=== PATIENT | female | born 1985 | race Caucasian/White ===

== ENCOUNTER 2017-12-31 22:00 | Inpatient (IN) | payer MEDICAID ==
[2017-12-31] MEDS ORDERED: LIDOCAINE 0.5% (PF) 5 MG/ML (50 ML SDV) SQ PRN (22:29)
[2017-12-31] MEDS ORDERED: CARBOPROST TROMETHAMINE 250 MCG/ML 1 ML AMP IM PRN (22:29)
[2017-12-31] MEDS ORDERED: OXYTOCIN 10 UNIT/ML 1 ML VIAL IM PRN (22:29)
[2017-12-31] MEDS ORDERED: AMPICILLIN 2,000 MG in SODIUM CHLORIDE 0.9% 100 ML IVPB STA (22:29)
[2017-12-31] MEDS ORDERED: TERBUTALINE 1 MG/ML VIAL SQ PRN (22:29)
[2017-12-31] MEDS ORDERED: METHYLERGONOVINE 0.2 MG/ML 1 ML AMP IM PRN (22:29)
[2017-12-31] MEDS ORDERED: LACTATED RINGERS 1,000 ML IV SCH (22:30)
[2017-12-31 22:44] LABS: Basophils % (A) 0 %; Eosinophils # (A) 0.1 k/uL (0-0.7); Eosinophils % (A) 2 %; HCT 40.6 % (34.0-46.0); HGB 13.1 gm/dL (11.4-16.0); Lymphocytes # (A) 1.3 k/uL (1.0-4.8); Lymphocytes % (A) 19 %; MCH 27.2 pg (25.0-35.0); MCHC 32.2 g/dL (31.0-37.0); MCV 84.4 fL (80.0-100.0); Mean Platelet Volume 9.9; Monocytes # (A) 0.4 k/uL (0-1.0); Monocytes % (A) 6 %; Neutrophils # (A) 5.1 k/uL (1.3-7.7); Neutrophils % (A) 71 %; Platelet Count 139 k/uL (150-450); RBC 4.81 m/uL (3.80-5.40); RDW 13.5 % (11.5-15.5); WBC 7.1 k/uL (3.8-10.6)
[2018-01-01] MEDS ORDERED: OXYTOCIN 20 UNITS/1000 ML NS 1,000 ML IV SCH (00:25)
[2018-01-01] MEDS ORDERED: HYDROcodone/APAP 5-325MG 1 EACH TAB PO PRN (00:39)
[2018-01-01] MEDS ORDERED: IBUPROFEN 600 MG TAB PO PRN (00:39)
[2018-01-01] MEDS ORDERED: ZOLPIDEM 5 MG TAB PO PRN (00:39)
[2018-01-01] MEDS ORDERED: diphenhydrAMINE 50 MG CAP PO PRN (00:39)
[2018-01-01] MEDS ORDERED: ACETAMINOPHEN TAB 325 MG TAB PO PRN (00:39)
[2018-01-01] MEDS ORDERED: LANOLIN CREAM 5 GM TUBE TOPICAL PRN (00:39)
[2018-01-01] MEDS ORDERED: diphenhydrAMINE 25 MG CAP PO PRN (00:39)
[2018-01-01] MEDS ORDERED: SIMETHICONE 80 MG CHEWABLE PO PRN (00:39)
[2018-01-01] MEDS ORDERED: diphenhydrAMINE 50 MG/ML 1 ML VIAL IVP PRN ×2 (00:39)
[2018-01-01] MEDS ORDERED: WITCH HAZEL 1 EACH MED..PAD TOPICAL PRN (00:39)
[2018-01-01] MEDS ORDERED: HYDROCORTISONE 2.5% RECTAL CREAM 30 GM TUBE RECTAL PRN (00:39)
[2018-01-01] MEDS ORDERED: BENZOCAINE/MENTHOL SPRAY 1 GM/SPRAY AEROSOL TOPICAL PRN (00:39)
--- NOTE | 2018-01-01 00:41 | P.HPOB ---
History of Present Illness H&P Date: 01/01/18 Chief Complaint: Intrauterine at term: Active labor Janice is a 32-year-old at 39 weeks gestation arrives in active labor dilated to 7 cm. She relates that her contractions began approximately 1/2-2 hours prior to her arrival and that they were every 2-4 minutes. At arrival she was dilated to 7 cm and it appears she has spontaneous rupture membranes in the triage area. Her course has been unremarkable other than GBS positive status. Pertinent labs include B+ blood type, Rh antibody was negative , rubella was immune, hepatitis B surface antigen and RPR were negative. heart tones are in the 130s and a category 1 tracing is noted. Medications and Allergies Home Medications Medication Instructions Recorded Confirmed Type No Known Home Medications 12/31/17 12/31/17 History Allergies Allergy/AdvReac Type Severity Reaction Status Date / Time No Known Allergies Allergy Verified 12/31/17 22:28 Exam Osteopathic Statement: *. No significant issues noted on an osteopathic structural exam other than those noted in the History and Physical/Consult. Intake and Output 12/31/17 12/31/17 01/01/18 14:59 22:59 06:59 Other: Weight 78.925 kg - OBG Physical Exam Breast: both: normal (no masses) Abdomen: bowel sounds normal, no diffuse tenderness, no bruit present, no guarding noted, no hepatomegaly, no splenomegaly, no mass Vulva: both: normal Vagina: normal moisture, no discharge Cervix: no lesion, no discharge Uterus: normal size, normal contour Adnexa: both: normal Anus/Rectum: normal perianal skin, no rectal mass, no hemorrhoids, heme negative Results Result Diagrams: 12/31/17 22:30 Abnormal Lab Results - Last 24 Hours (Table) 12/31/17 Range/Units 22:30 Plt Count 139 L (150-450) k/uL
--- NOTE | 2018-01-01 00:42 | P.PROBDLV ---
Vaginal Delivery Note - . Vaginal Delivery Note: Patient progressed complete and pushing with spontaneous vaginal delivery of a viable female over a second-degree perineal laceration. On delivery of the head from right occiput anterior position a nuchal cord 1 was noted and easily reduced. Anterior shoulder was then delivered gentle downward traction followed by the remainder the baby. Mouth and nares were then bulb suctioned and baby was placed on mother's abdomen where the umbilical cord was allowed to pulsate for 30 seconds prior to clamping and cutting. Nursery personnel was then present to assume care. Placenta was then delivered intact Pitocin was added to the IV. Laceration was repaired with 3-0 Vicryl following 1% Xylocaine for analgesia. scores were 9 and 10 at one and 5 minutes respectively and a weight of 7 lbs. 11 oz. Both mother and baby are stable following delivery.
[2018-01-01 02:47] VITALS: BMI 27.2
[2018-01-01] MEDS ORDERED: AMPICILLIN 1,000 MG in SODIUM CHLORIDE 0.9% 50 ML IVPB SCH (03:00)
[2018-01-01] MEDS ORDERED: INFLUENZA VACCINE (6 MOS+) 60 MCG/0.5 ML SYRINGE IM ONE (04:58)
[2018-01-01] MEDS: SENNOSIDES-DOCUSATE SODIUM 1 EACH TAB PO SCH ×2 (18:48→20:53)
--- NOTE | 2018-01-02 07:32 | P.DS ---
Providers Date of admission: 12/31/17 22:20 Expected date of discharge: 01/02/18 Attending physician: Shiloh Avila Primary care physician: Stated None - Discharge Diagnosis(es) (1) Normal vaginal delivery Current Visit: Yes Status: Acute Hospital Course: Patient presented in active labor. She underwent a normal vaginal delivery. Her course was uncomplicated. She'll be discharged home day #1 in stable condition to follow-up with me in 6 weeks. Plan - Discharge Summary New Discharge Prescriptions: New Ibuprofen [Motrin] 600 mg PO Q6HR PRN #30 tab PRN Reason: Mild Pain Or Fever >= 100.5 Discharge Medication List Ibuprofen [Motrin] 600 mg PO Q6HR PRN #30 tab 01/02/18 [Rx] Follow up Appointment(s)/Referral(s): Shiloh Avila DO [Doctor of Osteopathic Medicine] - 6 Weeks Discharge Disposition: HOME SELF-CARE
[2018-01-02] MEDS: SENNOSIDES-DOCUSATE SODIUM 1 EACH TAB PO SCH (08:00)
[2018-01-02 10:15] VITALS: BP 123/67; PULSE 90; RESP 18; TEMP 98
--- NOTE | 2018-01-04 07:52 | P.MSEPDOC ---
Presenting Problems - Arrival Data Date of Arrival on Unit: 12/31/17 Time of Arrival on Unit: 22:27 Mode of Transport: Ambulatory - Complaint OB-Reason for Admission/Chief Complaint: Possible Onset of Labor, Observation/ Evaluation Comment: contractions since 2099 Medical History - Information : 1 Para: 0 Term: 0 : 0 Abortions: Spontaneous or Elective: 0 Number of Living Children: 0 - Gestational Age Gestational Age by NAHEED (wks/days): 39 Weeks and 2 Days Review of Systems - Review of Systems Constitutional: No problems Breast: No problems ENT: No problems Cardiovascular: No problems Respiratory: No problems Gastrointestinal: No problems Genitourinary: No problems Musculoskeletal: No problems Neurological: No problems Skin: No problems Vital Signs - Temperature Temperature: 98.0 F Temperature Source: Oral - Pulse Right Brachial Pulse Rate: 90 Pulse Assessment Method: Automatic Cuff - Respirations Respiratory Rate: 18 Oxygen Delivery Method: Room Air - Blood Pressure Right Arm Blood Pressure: 123/67 Blood Pressure Mean: 85 Blood Pressure Source: Automatic Cuff Medical Screen Scoring (Pre) - Cervical Exam Dilation: 4-7 cm = 2 Effacement: More than 50% = 2 Membranes: Ruptured = 3 - Uterine Contractions Frequency: > or = 36 weeks =2 Duration: > 40 seconds = 2 Intensity: Contraction palpated strong = 1 - Maternal Vital Signs Maternal Blood Pressure: N/A Signs of Preeclampsia: N/A Maternal Respirations: N/A - Pain Assessment Pain Location and Character: Abdomen Pain Scale Used: Numeric (1 - 10) Pain Intensity: 6 Pain Description: *Acute, Tightness Pain Frequency: Intermittent Pain Duration: 1 Pain Duration Units: Hours Pain Behavior: Facial Grimacing Pain Aggravating Factors: Contractions Pharmacological Interventions: Discuss Pain Med Options Non-Pharmacological Interventions: Emotional/Spiritual Support, Environmental Control, Position/Reposition, Reduce Environmental Stimuli, Relaxation Technique - Maternal Trauma Maternal Trauma: N/A - Assessment Baseline FHR: 140 Heart Rate - NICHD Category: Category I (Normal) = 0 NST: Reactive Position: N/A Station: N/A - Total Score Total Score (Pre): 12 - Level of Risk Level of Risk: High (10+) Physician Notification (Pre) - Physician Notified Physician Notified Date: 01/01/18 Physician Notified Time: 22:19 Spoke With: Yared Perrin Order Received: Yes (admit for labor, abx, coming in) - Notification Comment Comment: Suite 7 Physician Notification (Post) - Notification Comment Comment: Admit for labor Suite 7, Yared coming in Disposition - Disposition OB Disposition: Admit, LDRP Suite Discharge Date: 01/02/18 Discharge Time: 16:33 I agree with the RN Medical Screening Exam: Yes Risk & Benefit of care provided described in d/c instruction: Yes Diagnosis: ENCOUNTER FOR FULL-TERM UNCOMPLICATED DELIVERY
== END 2018-01-02 16:36 | disposition home or self-care (01) | DRG 807 ==
LOC: FBPOP 22:00 → 4FBP 22:20
PROVIDERS: ADMIT Obstetrics & Gynecology; ATTEND Obstetrics & Gynecology
PROC: 10E0XZZ Delivery of Products of Conception, External Approach (ICD-10-PCS; principal; 2018-01-01)
PROC: 0KQM0ZZ Repair Perineum Muscle, Open Approach (ICD-10-PCS; 2018-01-01)
DX: O69.81X0 Labor and delivery complicated by cord around neck, without compression, not applicable or unspecified (principal); Z37.0 Single live birth; O99.824 Streptococcus B carrier state complicating childbirth; O70.1 Second degree perineal laceration during delivery; Z3A.39 39 weeks gestation of pregnancy
CPT/HCPCS: 85025; 86850; 86900; 86901; 90686

== ENCOUNTER → 2020-06-18 | Outpatient (CLI) | payer MEDICAID ==
[2020-06-18 13:52] LABS: Glucose 3 Hour, Gest 44 mg/dL
== END | disposition home or self-care (01) ==
LOC: LABWHC1 08:30
PROVIDERS: ATTEND Obstetrics & Gynecology
DX: O99.810 Abnormal glucose complicating pregnancy (principal); Z3A.00 Weeks of gestation of pregnancy not specified
CPT/HCPCS: 36415; 82951; 82952

== ENCOUNTER 2020-08-22 09:19 | Inpatient (IN) | payer MEDICAID ==
[2020-08-22] MEDS ORDERED: TERBUTALINE 1 MG/ML VIAL SQ PRN (09:39)
[2020-08-22] MEDS ORDERED: METHYLERGONOVINE 0.2 MG/ML 1 ML AMP IM PRN (09:39)
[2020-08-22] MEDS ORDERED: CARBOPROST TROMETHAMINE 250 MCG/ML 1 ML AMP IM PRN (09:39)
[2020-08-22] MEDS ORDERED: OXYTOCIN 10 UNIT/ML 1 ML VIAL IM PRN (09:39)
[2020-08-22] MEDS ORDERED: AMPICILLIN 2,000 MG in SODIUM CHLORIDE 0.9% 100 ML IVPB STA (09:39)
[2020-08-22] MEDS ORDERED: LIDOCAINE 0.5% (PF) 5 MG/ML (50 ML SDV) SQ PRN (09:39)
[2020-08-22] MEDS ORDERED: LACTATED RINGERS 1,000 ML IV SCH (09:45)
[2020-08-22] MEDS ORDERED: OXYTOCIN 30 UNITS/500 ML NS 30 UNIT in SALINE 1 500ML.BAG IV SCH (09:45)
[2020-08-22 10:48] LABS: Basophils % (A) 1 %; Eosinophils % (A) 0 %; HCT 36.4 % (34.0-46.0); HGB 11.5 gm/dL (11.4-16.0); Hypochromasia Slight; Lymphocytes % (A) 14 %; MCH 24.2 pg (25.0-35.0); MCHC 31.6 g/dL (31.0-37.0); MCV 76.4 fL (80.0-100.0); Mean Platelet Volume 11.6; Monocytes # (A) 0.4 k/uL (0-1.0); Monocytes % (A) 5 %; Neutrophils # (A) 5.2 k/uL (1.3-7.7); Neutrophils % (A) 78 %; RBC 4.77 m/uL (3.80-5.40); RDW 14.4 % (11.5-15.5); WBC 6.7 k/uL (3.8-10.6)
[2020-08-22 11:09] LABS: Large Platelets Present; Platelet Count 126 k/uL (150-450)
[2020-08-22 11:10] LABS: Anisocytosis (M) Present
[2020-08-22] MEDS: OXYTOCIN 30 UNITS/500 ML NS 30 UNIT in SALINE 1 500ML.BAG IV SCH ×2 (12:51→13:21)
[2020-08-22] MEDS ORDERED: diphenhydrAMINE 50 MG/ML 1 ML VIAL IVP PRN ×2 (12:57)
[2020-08-22] MEDS ORDERED: HYDROCORTISONE 2.5% RECTAL CREAM 30 GM TUBE RECTAL PRN (12:57)
[2020-08-22] MEDS ORDERED: ACETAMINOPHEN TAB 325 MG TAB PO PRN (12:57)
[2020-08-22] MEDS ORDERED: BENZOCAINE/MENTHOL SPRAY 1 GM/SPRAY AEROSOL TOPICAL PRN (12:57)
[2020-08-22] MEDS ORDERED: LANOLIN CREAM 5 GM TUBE TOPICAL PRN (12:57)
[2020-08-22] MEDS ORDERED: diphenhydrAMINE 25 MG CAP PO PRN (12:57)
[2020-08-22] MEDS ORDERED: diphenhydrAMINE 50 MG CAP PO PRN (12:57)
[2020-08-22] MEDS ORDERED: IBUPROFEN 600 MG TAB PO PRN (12:57)
[2020-08-22] MEDS ORDERED: ZOLPIDEM 5 MG TAB PO PRN (12:57)
[2020-08-22] MEDS ORDERED: SIMETHICONE 80 MG CHEWABLE PO PRN (12:57)
[2020-08-22] MEDS ORDERED: AMPICILLIN 1,000 MG in SODIUM CHLORIDE 0.9% 50 ML IVPB SCH (14:00)
[2020-08-23] MEDS: SENNOSIDES-DOCUSATE SODIUM 1 EACH TAB PO SCH ×2 (00:53→08:20)
[2020-08-23 06:02] LABS: Basophils % (A) 0 %; Eosinophils # (A) 0.1 k/uL (0-0.7); Eosinophils % (A) 1 %; HGB 10.5 gm/dL (11.4-16.0); Hypochromasia Slight; Lymphocytes # (A) 1.3 k/uL (1.0-4.8); Lymphocytes % (A) 16 %; MCH 26.1 pg (25.0-35.0); MCHC 33.9 g/dL (31.0-37.0); MCV 76.9 fL (80.0-100.0); Mean Platelet Volume 10.9; Monocytes # (A) 0.4 k/uL (0-1.0); Monocytes % (A) 5 %; Neutrophils % (A) 76 %; Platelet Count 116 k/uL (150-450); RBC 4.03 m/uL (3.80-5.40); RDW 14.5 % (11.5-15.5); WBC 7.8 k/uL (3.8-10.6)
[2020-08-23 08:04] VITALS: RESP 17
--- NOTE | 2020-08-23 08:07 | P.HPOB ---
History of Present Illness H&P Date: 08/22/20 Chief Complaint: Labor 34-year-old presents at 39 weeks and 5 days and labor. Her cervix is 7-8 cm dilated, 80% effaced, and -1 station. She is roger every 2-3 minutes. heart tones 135 with moderate variability and reactive. Review of Systems All systems: negative Constitutional: Denies chills, Denies fever Eyes: denies blurred vision, denies pain Ears, nose, mouth and throat: Denies headache, Denies sore throat Cardiovascular: Denies chest pain, Denies shortness of breath Respiratory: Denies cough Gastrointestinal: Denies abdominal pain, Denies diarrhea, Denies nausea, Denies vomiting Genitourinary: Denies dysuria, Denies hematuria Musculoskeletal: Denies myalgias Integumentary: Denies pruritus, Denies rash Neurological: Denies numbness, Denies weakness Psychiatric: Denies anxiety, Denies depression Endocrine: Denies fatigue, Denies weight change Past Medical History Past Medical History: No Reported History Additional Past Medical History / Comment(s): Obstetric history: First was a vaginal delivery. This is her second and she's had care with me since the first trimester. Blood type is B+, antibodies negative, rubella immune, RPR nonreactive, hepatitis B negative, GBS positive. History of Any Multi-Drug Resistant Organisms: None Reported Past Surgical History: No Surgical Hx Reported Additional Past Surgical History / Comment(s): wisdom teeth Past Anesthesia/Blood Transfusion Reactions: No Reported Reaction Past Psychological History: No Psychological Hx Reported Smoking Status: Never smoker Past Alcohol Use History: None Reported Past Drug Use History: None Reported - Past Family History Mother History Unknown: Yes Family Medical History: CVA/TIA, Hypertension, Thyroid Disorder Additional Family Medical History / Comment(s): depression, anxiety Medications and Allergies Home Medications Medication Instructions Recorded Confirmed Type Pnv No.95/Ferrous Fum/Folic AC 1 each PO DAILY 08/22/20 08/22/20 History [ Multivitamin Tablet] Allergies Allergy/AdvReac Type Severity Reaction Status Date / Time No Known Allergies Allergy Verified 12/31/17 22:28 Exam Osteopathic Statement: *. No significant issues noted on an osteopathic structural exam other than those noted in the History and Physical/Consult. Vital Signs Temp Pulse Pulse Resp BP Pulse Ox 08/23/20 08:00 97.9 F 78 17 104/57 98 08/23/20 00:00 98.0 F 78 18 103/70 97 08/22/20 16:00 98.2 F 82 16 136/71 08/22/20 15:03 80 16 122/75 08/22/20 14:20 85 16 121/71 08/22/20 13:50 98.2 F 82 16 119/74 08/22/20 13:35 94 16 124/67 08/22/20 13:20 84 16 134/80 08/22/20 13:05 90 16 126/78 08/22/20 12:50 98.1 F 99 18 143/68 08/22/20 10:07 97.9 F 82 17 127/88 100 Intake and Output 08/22/20 08/23/20 08/23/20 22:59 06:59 14:59 Intake Total 600 Balance 600 Intake: IV 600 Other: # Voids 2 1 Heart: Regular rate and rhythm Lungs: Clear to auscultation bilaterally Abdomen: Soft, nontender Extremities: Negative Homans sign Results Result Diagrams: 08/23/20 05:36 Abnormal Lab Results - Last 24 Hours (Table) 08/22/20 08/23/20 Range/Units 09:50 05:36 Hgb 10.5 L (11.4-16.0) gm/dL Hct 31.0 L (34.0-46.0) % MCV 76.4 L 76.9 L (80.0-100.0) fL MCH 24.2 L (25.0-35.0) pg Plt Count 126 L 116 L (150-450) k/uL Assessment and Plan (1) Normal labor Current Visit: Yes Status: Acute Code(s): O80 - ENCOUNTER FOR FULL-TERM UNCOMPLICATED DELIVERY; Z37.9 - OUTCOME OF DELIVERY, UNSPECIFIED SNOMED Code(s): 96440960 Plan: 1. Antibiotics for GBS prophylaxis 2. Expectant management 3. Anticipate normal vaginal delivery
--- NOTE | 2020-08-23 08:08 | P.PROBDLV ---
Vaginal Delivery Note - . Vaginal Delivery Note: 34-year-old presents at 39 weeks and 5 days and labor. Her cervix is 7-8 cm dilated, 80% effaced, and -1 station. She is roger every 2-3 minutes. heart tones 135 with moderate variability and reactive. Antibiotics were started. Amniotomy performed at 12:02 PM. Clear fluid noted. Her cervix was completely dilated at 12:30 PM. She pushed, and delivered a viable female over intact perineum at 12:46 PM. Head delivered OA, anterior shoulder delivered gentle downward guidance for by posterior shoulder and rest of body. Nose and mouth bulb suctioned, cord clamped and cut, infant placed mother's abdomen. Apgars 9, 9, weight 8 lbs. 8 oz. Placenta delivered spontaneously, intact with three-vessel cord at 12:49 PM. Vagina, cervix, perineum inspected. First-degree midline laceration was repaired with 3-0 Vicryl. Estimated blood loss 500 mL. Mother and baby in stable condition.
--- NOTE | 2020-08-23 08:10 | P.DS ---
Providers Date of admission: 08/22/20 09:38 Expected date of discharge: 08/23/20 Attending physician: Shiloh Avila Primary care physician: Stated None - Discharge Diagnosis(es) (1) Normal labor Current Visit: Yes Status: Resolved (2) Normal vaginal delivery Current Visit: No Status: Acute Hospital Course: Patient presented in active labor. She underwent a normal vaginal delivery. course was uncomplicated. She denies nausea, vomiting, chest pain, shortness of breath or any calf pain. Her lochia is decreasing. She'll be discharged home day #1 in stable condition to follow-up with me in 6 weeks. Plan - Discharge Summary New Discharge Prescriptions: New Ibuprofen [Motrin] 600 mg PO Q6H PRN #30 tab PRN Reason: Pain No Action Pnv No.95/Ferrous Fum/Folic AC [ Multivitamin Tablet] 1 each PO DAILY Discharge Medication List Pnv No.95/Ferrous Fum/Folic AC [ Multivitamin Tablet] 1 each PO DAILY 08/22/20 [History] Ibuprofen [Motrin] 600 mg PO Q6H PRN #30 tab 08/23/20 [Rx] Follow up Appointment(s)/Referral(s): Shiloh Avila DO [Doctor of Osteopathic Medicine] - 6 Weeks Discharge Disposition: HOME SELF-CARE
[2020-08-23 16:17] VITALS: BP 108/69; PULSE 89; TEMP 98.5
== END 2020-08-23 18:15 | disposition home or self-care (01) | DRG 807 ==
LOC: FBPOP 09:19 → 4FBP 09:38
PROVIDERS: ADMIT Obstetrics & Gynecology; ATTEND Obstetrics & Gynecology
PROC: 10E0XZZ Delivery of Products of Conception, External Approach (ICD-10-PCS; principal; 2020-08-22)
PROC: 0HQ9XZZ Repair Perineum Skin, External Approach (ICD-10-PCS; 2020-08-22)
DX: O70.0 First degree perineal laceration during delivery (principal); Z37.0 Single live birth; O99.824 Streptococcus B carrier state complicating childbirth; Z3A.39 39 weeks gestation of pregnancy
CPT/HCPCS: 85025; 86850; 86900; 86901

== ENCOUNTER 2024-04-09 08:20 | Emergency (ER) | payer MEDICAID ==
--- NOTE | 2024-04-09 09:16 | ED ---
General Adult HPI - General Chief complaint: Skin/Abscess/Foreign Body Stated complaint: allergic reaction Time Seen by Provider: 04/09/24 08:34 Source: patient, RN notes reviewed Mode of arrival: ambulatory Limitations: no limitations - History of Present Illness Initial comments: 38-year-old female presents to the emergency department for evaluation of pain and swelling. Patient notes she had some swelling to her upper lip yesterday. She notes that it seemed to improve but then came back again this morning. She took Benadryl and had some improvement in the swelling. Patient also reports that she had hives and itching to the lower extremities. She states that she typically takes Zyrtec daily for seasonal allergies but states that she has been out of this for the past 3 days. She denies any new medications. She does report using a new laundry detergent. She denies recent fever, chills. Denies any difficulty breathing. - Related Data Home Medications Medication Instructions Recorded Confirmed Pnv No.95/Ferrous Fum/Folic AC 1 each PO DAILY 08/22/20 08/22/20 [ Multivitamin Tablet] Previous Rx's Medication Instructions Recorded Ibuprofen [Motrin] 600 mg PO Q6H PRN #30 tab 08/23/20 predniSONE 50 mg PO DAILY #5 tab 04/09/24 Allergies Allergy/AdvReac Type Severity Reaction Status Date / Time amoxicillin [From Augmentin] AdvReac Nausea & Verified 04/09/24 08:29 Vomiting & Diarrhea clavulanic acid AdvReac Nausea & Verified 04/09/24 08:29 [From Augmentin] Vomiting & Diarrhea Review of Systems ROS Statement: Those systems with pertinent positive or pertinent negative responses have been documented in the HPI. ROS Other: All systems not noted in ROS Statement are negative. Past Medical History Past Medical History: No Reported History Additional Past Medical History / Comment(s): Obstetric history: First was a vaginal delivery. This is her second and she's had care with me since the first trimester. Blood type is B+, antibodies negative, rubella immune, RPR nonreactive, hepatitis B negative, GBS positive. History of Any Multi-Drug Resistant Organisms: None Reported Past Surgical History: No Surgical Hx Reported Additional Past Surgical History / Comment(s): wisdom teeth Past Anesthesia/Blood Transfusion Reactions: No Reported Reaction Past Psychological History: No Psychological Hx Reported Smoking Status: Never smoker Past Alcohol Use History: None Reported Past Drug Use History: None Reported - Past Family History Mother History Unknown: Yes Family Medical History: CVA/TIA, Hypertension, Thyroid Disorder Additional Family Medical History / Comment(s): depression, anxiety General Exam Limitations: no limitations General appearance: alert, in no apparent distress Head exam: Present: atraumatic, normocephalic, normal inspection Eye exam: Present: normal appearance, PERRL, EOMI. Absent: scleral icterus, conjunctival injection, periorbital swelling ENT exam: Present: normal exam, normal oropharynx, mucous membranes moist Neck exam: Present: normal inspection. Absent: tenderness, meningismus, lymphadenopathy Respiratory exam: Present: normal lung sounds bilaterally. Absent: respiratory distress, wheezes, rales, rhonchi, stridor Cardiovascular Exam: Present: regular rate, normal rhythm, normal heart sounds. Absent: systolic murmur, diastolic murmur, rubs, gallop, clicks GI/Abdominal exam: Present: soft, normal bowel sounds. Absent: distended, tenderness, guarding, rebound, rigid Extremities exam: Present: normal inspection, full ROM, normal capillary refill. Absent: tenderness, pedal edema, joint swelling, calf tenderness Neurological exam: Present: alert, oriented X3 Psychiatric exam: Present: normal affect, normal mood Skin exam: Present: warm, dry, intact, normal color. Absent: rash Course Vital Signs 04/09/24 04/09/24 04/09/24 08:31 10:00 11:01 Temperature 98.4 F 98.3 F 98 F Pulse Rate 95 89 80 Respiratory 18 18 16 Rate Blood Pressure 112/74 115/76 109/74 O2 Sat by Pulse 100 100 100 Oximetry Medical Decision Making - Medical Decision Making Was pt. sent in by a medical professional or institution (, PA, ANALYTICS CONSULTANT, urgent care, hospital, or long term...) When possible be specific @ -No Did you speak to anyone other than the patient for history (EMS, parent, family, police, friend...)? What history was obtained from this source @ -No Did you review nursing and triage notes (agree or disagree)? Why? @ -I reviewed and agree with nursing and triage notes Were old charts reviewed (outside hosp., previous admission, EMS record, old EKG, old radiological studies, urgent care reports/EKG's, long term records)? Report findings @ -No old charts were reviewed Differential Diagnosis (chest pain, altered mental status, abdominal pain women, abdominal pain men, vaginal bleeding, weakness, fever, dyspnea, syncope, headache, dizziness, GI bleed, back pain, seizure, CVA, palpatations, mental health, musculoskeletal)? @ -Angioedema, allergic reaction, viral syndrome, this list is not all inclusive EKG interpreted by me (3pts min.). @ -None X-rays interpreted by me (1pt min.). @ -None done CT interpreted by me (1pt min.). @ -None done U/S interpreted by me (1pt. min.). @ -None done What testing was considered but not performed or refused? (CT, X-rays, U/S, labs)? Why? @ -None What meds were considered but not given or refused? Why? @ -None Did you discuss the management of the patient with other professionals (professionals i.e. , PA, ANALYTICS CONSULTANT, lab, RT, psych nurse, social work administrator, leisure studies professor, teacher, fire control officer, watch case polisher)? Give summary @ -No Was smoking cessation discussed for >3mins.? @ -No Was critical care preformed (if so, how long)? @ -No Were there social determinants of health that impacted care today? How? (Homelessness, low income, unemployed, alcoholism, drug addiction, transportation, low edu. Level, literacy, decrease access to med. care, correction, rehab)? @ -No Was there de-escalation of care discussed even if they declined (Discuss DNR or withdrawal of care, Hospice)? DNR status @ -No What co-morbidities impacted this encounter? (DM, HTN, Smoking, COPD, CAD, Cancer, CVA, ARF, Chemo, Hep., AIDS, mental health diagnosis, sleep apnea, morbid obesity)? @ -None Was patient admitted / discharged? Hospital course, mention meds given and route , prescriptions, significant lab abnormalities, going to OR and other pertinent info. @ -Discharge. Patient presented emergency department for evaluation of hives. Laboratory studies obtained. There is no significant leukocytosis, hemoglobin stable; CMP nonactionable at this time, negative heterophile. Chest x-ray shows no evidence of acute process. Patient was provided with allergy cocktail i ncluding Solu-Medrol, Benadryl, Pepcid. She reports improvement in her symptoms following this. Patient is not having any difficulty breathing or wheezing. Prescription was sent to the patients pharmacy for short course of steroids, advised her to continue Benadryl and Pepcid as well. She is understanding agreeable this plan. Patient stable at time of discharge. Case discussed with Dr. Michaels Undiagnosed new problem with uncertain prognosis? @ -No Drug Therapy requiring intensive monitoring for toxicity (Heparin, Nitro, Insulin, Cardizem)? @ -No Were any procedures done? @ -No Diagnosis/symptom? @ -Urticaria Acute, or Chronic, or Acute on Chronic? @ -Acute Uncomplicated (without systemic symptoms) or Complicated (systemic symptoms)? @ -Uncomplicated Side effects of treatment? @ -No Exacerbation, Progression, or Severe Exacerbation? @ -No Poses a threat to life or bodily function? How? (Chest pain, [place], MT, pneumonia, PE, COPD, DKA, ARF, appy, cholecystitis, CVA, Diverticulitis, Homicidal, Suicidal, threat to staff... and all critical care pts) @ -No - Lab Data Result diagrams: 04/09/24 09:22 04/09/24 09:22 Lab Results 04/09/24 04/09/24 04/09/24 Range/Units 09:22 09:22 09:22 WBC 7.2 (3.8-10.6) k/uL RBC 5.11 (3.80-5.40) m/uL Hgb 14.7 (11.4-16.0) gm/dL Hct 43.3 (34.0-46.0) % MCV 84.7 (80.0-100.0) fL MCH 28.7 (25.0-35.0) pg MCHC 33.9 (31.0-37.0) g/dL RDW 12.7 (11.5-15.5) % Plt Count 144 L (150-450) k/uL MPV 9.0 Neutrophils % 75 % Lymphocytes % 18 % Monocytes % 4 % Eosinophils % 1 % Basophils % 0 % Neutrophils # 5.4 (1.3-7.7) k/uL Lymphocytes # 1.3 (1.0-4.8) k/uL Monocytes # 0.3 (0-1.0) k/uL Eosinophils # 0.1 (0-0.7) k/uL Basophils # 0.0 (0-0.2) k/uL Sodium 138 (137-145) mmol/L Potassium 3.8 (3.5-5.1) mmol/L Chloride 102 (98-107) mmol/L Carbon Dioxide 25 (22-30) mmol/L Anion Gap 11 mmol/L BUN 11 (7-17) mg/dL Creatinine 0.74 (0.52-1.04) mg/dL Est GFR (CKD-EPI)AfAm >90 (>60 ml/min/1.73 sqM) Est GFR (CKD-EPI)NonAf >90 (>60 ml/min/1.73 sqM) Glucose 99 (74-99) mg/dL Calcium 9.5 (8.4-10.2) mg/dL Total Bilirubin 1.1 (0.2-1.3) mg/dL AST 18 (14-36) U/L ALT 14 (4-34) U/L Alkaline Phosphatase 44 (38-126) U/L Total Protein 6.5 (6.3-8.2) g/dL Albumin 4.3 (3.5-5.0) g/dL Heterophile Antibody Negative (Negative) Disposition Clinical Impression: Urticaria Disposition: HOME SELF-CARE Condition: Stable Instructions (If sedation given, give patient instructions): Urticaria (ED) Additional Instructions: Continue taking your Zyrtec. You may also take Pepcid as it has some anti-hi stamine properties. Please follow up with your primary care provider. Return to the emergency department for new or worsening symptoms. Prescriptions: predniSONE 50 mg PO DAILY #5 tab Is patient prescribed a controlled substance at d/c from ED?: No Referrals: Deandra Sanchez MD [Primary Care Provider] - 1-2 days
[2024-04-09] MEDS: diphenhydrAMINE 50 MG/ML 1 ML VIAL IVP STA (09:28)
[2024-04-09] MEDS: FAMOTIDINE 20 MG/2 ML VIAL IV STA (09:28)
[2024-04-09] MEDS: methylPREDNISolone SOD SUCCI 125 MG/2 ML VIAL IV STA (09:28)
[2024-04-09 09:37] LABS: Basophils % (A) 0 %; Eosinophils # (A) 0.1 k/uL (0-0.7); Eosinophils % (A) 1 %; HCT 43.3 % (34.0-46.0); HGB 14.7 gm/dL (11.4-16.0); Lymphocytes # (A) 1.3 k/uL (1.0-4.8); Lymphocytes % (A) 18 %; MCH 28.7 pg (25.0-35.0); MCHC 33.9 g/dL (31.0-37.0); MCV 84.7 fL (80.0-100.0); Monocytes # (A) 0.3 k/uL (0-1.0); Monocytes % (A) 4 %; Neutrophils # (A) 5.4 k/uL (1.3-7.7); Neutrophils % (A) 75 %; Platelet Count 144 k/uL (150-450); RBC 5.11 m/uL (3.80-5.40); RDW 12.7 % (11.5-15.5); WBC 7.2 k/uL (3.8-10.6)
[2024-04-09 09:46] LABS: ALT 14 U/L (4-34); AST 18 U/L (14-36); African American GFR (CKD) >90 (>60 ml/min/1.73 sqM); Albumin 4.3 g/dL (3.5-5.0); Alkaline Phosphatase 44 U/L (38-126); Anion Gap 11 mmol/L; Blood Urea Nitrogen 11 mg/dL (7-17); Calcium 9.5 mg/dL (8.4-10.2); Carbon Dioxide 25 mmol/L (22-30); Chloride 102 mmol/L (98-107); Glucose 99 mg/dL (74-99); Non-African American GFR(CKD) >90 (>60 ml/min/1.73 sqM); Potassium 3.8 mmol/L (3.5-5.1); Sodium 138 mmol/L (137-145); Total Bilirubin 1.1 mg/dL (0.2-1.3); Total Protein 6.5 g/dL (6.3-8.2)
--- NOTE | 2024-04-09 09:46 | XR ---
EXAMINATION TYPE: XR chest 2V DATE OF EXAM: 04/09/2024 9:41 AM COMPARISON: None. CLINICAL INDICATION: Female, 38 years old with history of cough, TECHNIQUE: XR chest 2V view(s) obtained. FINDINGS: The heart size is normal. The pulmonary vasculature is normal. The lungs are clear. IMPRESSION: 1. No acute pulmonary process. [facility], , 04/09/2024 9:43 AM
[2024-04-09 11:03] VITALS: BP 109/74; PULSE 80; RESP 16; TEMP 98
== END 2024-04-09 11:05 | disposition home or self-care (01) ==
LOC: EC 08:20
DX: L50.9 Urticaria, unspecified (principal); Z88.0 Allergy status to penicillin; Z88.1 Allergy status to other antibiotic agents
CPT/HCPCS: 36415; 80053; 85025; 86308; 71046; 99283; 96374; 96375; J1200; J3490; J2919